=== PATIENT | male | born 1985 | race Two or more races ===

== ENCOUNTER 2017-01-01 18:24 | Emergency (ER) | payer MEDICAID ==
[~2017-01-01] VITALS: Ht 172.7 cm; Wt 90.9 kg
[2017-01-01] MEDS ORDERED: ESCI20TA PO (18:35)
[2017-01-01] MEDS ORDERED: LEVO25TA4 PO (18:35)
[2017-01-01] MEDS ORDERED: ALPRAZolam 0.25 MG TABLET PO ONE (20:00)
[2017-01-01 21:07] VITALS: BP 110/60
== END 2017-01-01 21:17 | disposition home or self-care (01) ==
LOC: EMS 18:26
DX: F41.9 Anxiety disorder, unspecified (principal); F31.9 Bipolar disorder, unspecified; F12.10 Cannabis abuse, uncomplicated
CPT/HCPCS: 99284